=== PATIENT | female | born 1955 | race Caucasian/White ===

== ENCOUNTER 2024-10-23 09:30 | Outpatient (CLI) | payer MEDICARE | END 2024-10-23 09:31 | disposition home or self-care (01) | LOC: MADLAB 09:30 | PROVIDERS: ATTEND Family Medicine | DX: M54.6 Pain in thoracic spine (principal); M47.814 Spondylosis without myelopathy or radiculopathy, thoracic region | CPT/HCPCS: 71046; 72072 ==